=== PATIENT | female | born 1980 | race Caucasian/White ===

== ENCOUNTER 2018-04-16 20:13 | Emergency (ER) | payer BC, SELFPAY ==
[2018-04-16 20:22] VITALS: BP 129/65; PULSE 110; RESP 20; TEMP 37.5; O2SAT 88
--- NOTE | 2018-04-16 20:31 | DI.RAD_ITS ---
SYMPTOM/DIAGNOSIS: SOB, ASTHMA, LT LUNG FIELD WHEEZE PA AND LATERAL CHEST: The heart size is normal. The lungs are clear. No infiltrate, effusion or pneumothorax is seen. IMPRESSION: Negative chest xray. t
--- NOTE | 2018-04-16 20:32 | W.ED.GENAD ---
Discharge Plan Disposition Patient Disposition: HOME Condition: Good Discharge Details Chief Complaint: SOB Clinical Impression: Asthma Primary Care Provider: Patrizia Nelson ED Provider: Matthew Wright Home Meds and New Rx's Prescriptions: New prednisone 50 MG tablet 50 mg PO DAILY Qty: 5 RF: 0 No Action PNV cmb#95-ferrous fumarate-FA [] 1 EACH tablet 1 ea PO DAILY RF: 0 calcium Tablet PO RF: 0 PROVENTIL HFA 18 GM HFA.AER.AD 2 puff Inhalation Q4H PRN Qty: 1 RF: 0 acetaminophen [Tylenol] 325 MG tablet 650 mg PO Q4H PRN PRN (Reason: Headache) RF: 0 acetaminophen [Tylenol] 325 MG tablet 650 mg PO Q4H PRN PRNRF: 0 Discharge Instructions Instructions: Asthma (ED) Additional Instructions: Please take your inhaler every 6 hours. Please take the steroid as directed. If you notice any worsening of your symptoms, or any new symptoms such as vomiting, diarrhea, fever, chills, shortness of breath, chest pain, numbness, weakness, or fainting , please return immediately to the emergency department for reevaluation. Please follow up with your primary care provider as soon as possible for reassessment and reevaluation. As always, it was a pleasure participating in your medical care today. Referrals: Patrizia Nelson MD, [place] [Primary Care Provider] - Medical Decision Making This is a pleasant 38-year-old female with a past medical history of asthma who presents for evaluation of an asthma attack. Patient does not smoke, she has been taking her albuterol inhaler every 2 hours. Physical exam demonstrates notable wheezes throughout and some mild respiratory difficulty. Patient was given a breathing treatment here and she now feels much better. We will continue with 2 additional breathing treatments, and steroids we will get a chest x-ray to rule out pneumonia. Patient's clinical presentation is inconsistent with a PE and clinically consistent with an asthma exacerbation with her notable improvement. She is tachycardic but this is been secondary to the albuterol administration has been provided here. 9:50 PM Patient's chest x-ray is returned negative for any acute process. She has no risk factors for pulmonary embolism. Patient's lung sounds have notably improved, oxygen saturation is excellent on room air. Patient states that she feels much better and would like to go home. Patient is slightly tachycardic after the third DuoNeb, however she feels normal, she states that she has no jitteriness at this time and would like to be discharged. I think this is reasonable. We will encourage continued albuterol at home every 6 hours, as well as steroids. With her notable improvement in her symptoms, and her clinical case clinically consistent with an asthma exacerbation I feel she can be safely discharged home with close follow-up with her PCP. We discussed red flags which return the patient understands. I have extensively reviewed the treatment plan and discharge instructions with the patient. I have addressed all patient concerns at this time. The patient was made aware of what symptoms to monitor for that would warrant a return to the emergency department. Discussed the plan with the patient, they demonstrate verbal understanding and agreement with our assessment and plan at this time. HPI General Date/Time Provider Initiated Documentation: 04/16/18 20:14. HPI Narrative: This is a pleasant 38-year-old female with past medical history of asthma who presents today for evaluation of an asthma attack. Patient does have a an albuterol inhaler at home which she has been taking every 2 hours but notes that it is not been significantly improving her symptoms. Symptoms started earlier today. She has an associated cough. She denies any chest pain, arm pain, neck pain, pleuritic chest pain. She denies any hemoptysis, fever, or chills. She states that her symptoms are clinically consistent with her previous asthma exacerbations. Denies PE risk factors such as recent long car rides, immobilization, recent surgery, prior history of DVT or PE, family history of PE or DVT, morbid obesity, exogenous estrogen and smoking, hemoptysis, history of cancer. Patient has not been on any recent steroids or antibiotics. She has no other additional complaints at this time. No aggravating or modifying factors. She does not smoke. She denies any pertinent family history. Related Data Home Medications Medication Instructions Recorded Confirmed PNV cmb#95-ferrous fumarate-FA 1 ea PO DAILY 03/30/17 10/20/17 [] Calcium PO 04/21/17 acetaminophen [Tylenol] 650 mg PO Q4H PRN PRN 10/20/17 10/20/17 acetaminophen [Tylenol] 650 mg PO Q4H PRN PRN tab 10/22/17 prednisone 50 mg PO DAILY #5 tab 04/16/18 Previous Rx's Medication Instructions Recorded acetaminophen [Tylenol] 650 mg PO Q4H PRN PRN tab 10/22/17 prednisone 50 mg PO DAILY #5 tab 04/16/18 Allergies Allergy/AdvReac Type Severity Reaction Status Date / Time amoxicillin [Amoxicillin] AdvReac Severe violent Unverified 12/01/17 10:12 vomiting General Stated Complaint: SOB CLIF: 3 Review of Systems Review of Systems All systems reviewed & are unremarkable except as noted in HPI and below PFSH Medical History Asthma Eczema Surgical History section section Family History Mother Disorder of thyroid gland Father Essential hypertension Aunt Carcinoma in situ of breast Other Asthma Social History Smoking/Tobacco Use Status: Never Exam Narrative Exam Narrative: 1.Const: Well-nourished, Well-developed, appearing stated age 2.Eyes: PERRL, no conjunctival injection, and symmetrical lids. 3.ENT: Atraumatic external nose and ears. Moist MM. Neck: Symmetric, trachea midline, No thyromegaly. 4.CVS: +S1/S2, No murmurs or gallops. Peripheral pulses 2+ and equal in all extremities. Brisk capillary refill in all extremities. 5.RESP: Notable decrease in breath sounds in the right, minimal wheezes on the left. Post breathing treatment the patient demonstrated no notable wheezes throughout. No significant rhonchi or rales. 6.GI: Soft, Nontender/Nondistended, No hepatosplenomegaly. No guarding or rebound. 7.MSK: Normocephalic/Atraumatic, Extremities w/o deformity or ttp No cyanosis or clubbing, Normal movement of all extremities. No calf tenderness. 8.Skin: Warm, Dry. No rashes or lesions. 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 Sensation grossly intact, no focal neurologic deficits. 10.Psych: (AAO) x3. Appropriate mood and affect Course Vital Signs Temperature 37.5 C 04/16/18 20:22 Pulse 110 H 04/16/18 20:22 Respiratory Rate 20 04/16/18 20:22 Blood Pressure 129/65 04/16/18 20:22 Pulse Oximetry 88 L 04/16/18 20:22 Temperature 37.5 C 04/16/18 20:22 Pulse 110 H 04/16/18 20:22 Respiratory Rate 20 04/16/18 20:22 Blood Pressure 129/65 04/16/18 20:22 Blood Pressure Position Sitting 04/16/18 20:22 Pulse Oximetry 88 L 04/16/18 20:22 Oxygen Delivery Method Room Air 04/16/18 20:22 Oxygen Flow Rate 0 04/16/18 20:22
[2018-04-16 20:39] VITALS: RESP 4
[2018-04-16] MEDS: Albuterol/Ipratropium 3 ML UPD VIAL 6 ML UPD (20:39)
[2018-04-16] MEDS: Albuterol/Ipratropium 3 ML UPD VIAL (20:39)
[2018-04-16] MEDS: methylPREDNISolone SUCC 125 MG VIAL IVP (20:40)
--- NOTE | 2018-04-16 21:31 | DI.VRAD_ITS ---
EXAM: XR Chest, 2 Views EXAM DATE/TIME: 04/16/2018 8:32 PM CLINICAL HISTORY: 38 years old, female; Signs and symptoms; Shortness of breath; Patient HX: SOB, asthma, ll lung field wheeze TECHNIQUE: XR of the chest, 2 views. COMPARISON: No relevant prior studies available. FINDINGS: Lungs: No focal pulmonary opacity. Pleural space: No pneumothorax. No pleural effusion. Heart/Mediastinum: The cardiomediastinal silhouette is within normal limits. The pulmonary vasculature is within normal limits. Bones/joints: The osseous structures are within normal limits. IMPRESSION: No acute cardiopulmonary findings. Dictated and Authenticated by: Gabby Stephens MD. Ordering:NÉSTOR Castro MD
[2018-04-16 21:52] VITALS: BP 124/69; PULSE 127; RESP 18; TEMP 37.4; O2SAT 94
== END 2018-04-16 21:56 | disposition home or self-care (01) ==
PROVIDERS: Emergency Provider Student in an Organized Health Care Education/Training Program; PCP Family Medicine
DX: J45.901 Unspecified asthma with (acute) exacerbation (principal)
CPT/HCPCS: 94640; 96374; 99284; 71046; J2930; J7620

== ENCOUNTER 2018-04-24 01:08 | Outpatient (CLI) | payer BC, SELFPAY ==
--- NOTE | 2018-04-24 11:33 | DI.US_ITS ---
SYMPTOMS/DIAGNOSIS: ENLARGED THYROID, NONTOXIC GOITER, E04.9 THYROID ULTRASOUND: Routine examination was performed. The right lobe is at the upper limits of normal in size measuring 6 cm long x 1.9 cm AP x 2.6 cm transverse. The left lobe measures 5.2 cm craniocaudad x 1.7 cm AP x 2.3 cm transverse. The isthmus measures .4 cm. The parenchyma has a slightly heterogeneous appearance but no discrete mass is appreciated. There is normal and symmetric blood flow to the thyroid gland. IMPRESSION: Upper limits of normal thyroid gland but no discrete mass or abnormal blood flow is seen.
[2018-04-24 13:30] LABS: Anion Gap 9.5 mmol/L (3-11); BUN 16 mg/dL (7-18); CO2 28.5 mmol/L (21.0-32.0); CREATININE 1.18 mg/dL (0.55-1.02); Calcium 8.6 mg/dL (8.5-10.1); Chloride 102 mmol/L (98-107); Cholesterol 128 mg/dL (50-200); Estimated GFR 51.26 (mL/min/1.73m2); Glucose 92 mg/dL (70-100); HDL Cholesterol 56 mg/dL (40-60); LDL CHOLESTEROL 61 mg/dL (<100); Potassium 3.8 mmol/L (3.5-5.1); Sodium 140 mmol/L (136-145); TSH 1.11 uIU/mL (0.358-3.74); Triglyceride 55 mg/dL (30-150)
[2018-04-24 14:05] LABS: FREE T4 1.17 ng/dL (0.76-1.46)
== END 2018-04-24 01:28 ==
PROVIDERS: PCP Nurse Practitioner Family; Visit Provider Nurse Practitioner Family
DX: Z00.00 Encounter for general adult medical examination without abnormal findings (principal); E11.9 Type 2 diabetes mellitus without complications; E04.9 Nontoxic goiter, unspecified
CPT/HCPCS: 36415; 80048; 80061; 83721; 76536; 84439; 84443

== ENCOUNTER 2018-06-11 14:08 | Outpatient (REF) | payer BC, SELFPAY | END 2018-06-11 14:28 | LOC: LBN 14:08 | PROVIDERS: PCP Nurse Practitioner Family; Visit Provider Nurse Practitioner Family | DX: R31.9 Hematuria, unspecified (principal) | CPT/HCPCS: 87086 ==

== ENCOUNTER 2018-06-22 08:45 | Outpatient (CLI) | payer BC, SELFPAY ==
[2018-06-22 10:18] LABS: HCG Quant, Pregnancy 32 mIU/mL (1-3)
== END 2018-06-22 09:05 ==
PROVIDERS: PCP Nurse Practitioner Family; Visit Provider Obstetrics & Gynecology
DX: O20.9 Hemorrhage in early pregnancy, unspecified (principal)
CPT/HCPCS: 36415; 84702

== ENCOUNTER 2018-06-25 13:54 | Outpatient (CLI) | payer BC, SELFPAY ==
[2018-06-25 15:46] LABS: HCG Quant, Pregnancy 35 mIU/mL (1-3)
== END 2018-06-25 14:14 ==
PROVIDERS: PCP Nurse Practitioner Family; Visit Provider Obstetrics & Gynecology
DX: O20.9 Hemorrhage in early pregnancy, unspecified (principal)
CPT/HCPCS: 36415; 84702

== ENCOUNTER 2018-06-29 13:54 | Outpatient (CLI) | payer BC, SELFPAY ==
[2018-06-29 15:48] LABS: HCG Quant, Pregnancy 35 mIU/mL (1-3)
== END 2018-06-29 14:14 ==
PROVIDERS: PCP Nurse Practitioner Family; Visit Provider Obstetrics & Gynecology Gynecology
DX: Z32.01 Encounter for pregnancy test, result positive (principal)
CPT/HCPCS: 84702

== ENCOUNTER 2018-07-11 10:39 | Outpatient (CLI) | payer BC, SELFPAY ==
[2018-07-11 11:24] LABS: HCG Quant, Pregnancy 24 mIU/mL (1-3)
== END 2018-07-11 10:59 ==
PROVIDERS: PCP Nurse Practitioner Family; Visit Provider Obstetrics & Gynecology Gynecology
DX: O03.9 Complete or unspecified spontaneous abortion without complication (principal)
CPT/HCPCS: 36415; 84702

== ENCOUNTER 2018-07-17 09:33 | Outpatient (CLI) | payer BC, SELFPAY ==
[2018-07-17 11:25] LABS: HCG Quant, Pregnancy 204 mIU/mL (1-3)
== END 2018-07-17 09:53 ==
PROVIDERS: PCP Nurse Practitioner Family; Visit Provider Obstetrics & Gynecology Gynecology
DX: O03.9 Complete or unspecified spontaneous abortion without complication (principal)
CPT/HCPCS: 36415; 84702

== ENCOUNTER 2018-08-17 14:30 | Outpatient (CLI) | payer BC, SELFPAY | END 2018-08-17 14:50 | PROVIDERS: PCP Nurse Practitioner Family; Visit Provider Obstetrics & Gynecology Gynecology | DX: Z32.01 Encounter for pregnancy test, result positive (principal) | CPT/HCPCS: 36415; 84702 ==

== ENCOUNTER 2018-09-06 15:52 | Outpatient (CLI) | payer BC, SELFPAY ==
[2018-09-06 16:21] LABS: Abs Immature Grans 0.02 k/cumm (0.0-0.09); Absolute Basophil Count 0.02 k/cumm (0.0-0.2); Absolute Eosinophil Count 0.27 k/cumm (0.0-0.7); Absolute Lymphocyte Count 1.95 k/cumm (1.2-3.4); Absolute Monocyte Count 0.44 k/cumm (0.11-0.7); Absolute Neutrophil Count 5.71 k/cumm (1.2-6.7); Basophils % 0.2; Eosinophils % 3.2; HCT 44.6 % (36.0-46.0); HGB 14.6 g/dL (12.0-15.5); Immature Grans % 0.2; Lymphocytes % 23.2; Mean Corp. HGB Concentration 32.7 g/dL (32.0-36.0); Mean Corpuscular Hemoglobin 29.8 pg (27.0-33.0); Mean Platelet Volume 11.2 fL (8.0-11.0); Monocytes % 5.2; Platelet Count 192 x1000/uL (130-400); RBC Distribution Width 13.1 % (11.7-14.6); White Blood Cell Count 8.41 k/cumm (4.4-10.8)
[2018-09-06 18:18] LABS: *AMPHETAMINES SCREEN URINE Negative (Negative); *BARBITURATES SCREEN URINE Negative (Negative); *BENZODIAZEPINES SCREEN URINE Negative (Negative); Cannabinoids THC Negative (Negative); Cocaine Screen,Urine Negative (Negative); METHADONE URINE SCREEN Negative (Negative); OPIATES URINE SCREEN Negative (Negative)
[2018-09-06 18:25] LABS: Tricyclic Antidepressants Negative (Negative)
[2018-09-09 13:00] LABS: HIV-1/2 Ag & Ab Screen Negative (NEGAT)
[2018-09-10 11:46] LABS: Rubella IgG Ab (UVM) Positive; Syphilis Serology (RPR) Negative (Negative); Varicella IgG Antibody Positive
[2018-09-10 12:00] LABS: Hepatitis B Surface Ag Negative (NEGAT)
[2018-09-10 12:07] LABS: Hepatitis C Ab w Rflx HCV PCR Negative (NEGAT)
[2018-09-10 13:57] LABS: Buprenorphine Negative; Norbuprenorphine Negative
== END 2018-09-06 16:12 ==
PROVIDERS: PCP Nurse Practitioner Family; Visit Provider Advanced Practice Midwife
DX: Z34.91 Encounter for supervision of normal pregnancy, unspecified, first trimester (principal); Z11.4 Encounter for screening for human immunodeficiency virus [HIV]; Z11.59 Encounter for screening for other viral diseases; Z01.84 Encounter for antibody response examination
CPT/HCPCS: 36415; 80055; 80307; 86787; 86803; 86850; 86900; 86901; 87340; 87389; 86592; 86762; 87086

== ENCOUNTER 2018-11-01 00:20 | Outpatient (CLI) | payer BC, SELFPAY ==
--- NOTE | 2018-11-01 13:52 | DI.US_ITS ---
Predicted Gestational Age: Indication/History: , z34.90 18 Wks Range: 17 to 19 Prior US done on: Determined by: First US LMP History EDC by prior US: For multiple gestations: Baby PLACENTA: Grade: i Location: Anterior x Posterior PRESENTATION: RT LT LOW LYING PREVIA Cephalic X Trans (Head RT LT ) Varied Breech BIOMETRY: Anatomy Identified: BPD: 46 mm 19.5 wks 4 chamber Heart X Heart Rate 165 BPM HC: 170 mm 19.4 wks LVOT X Post Fossa X AC: 134 mm 19.6 wks RVOT X Ventricles X FL: 29 mm 18.5 wks Stomach X Nose X Bladder X Lips X Cisterna Magna: 3.4 mm CI: 86 Kidneys X Palate X Cerebellum: 1.86 mm 3 vessel cord X Spine X EFW: 265 grms 93rd % Cord Insertion X NS= not seen Composite Age (US) 19.2 wks Many abnormalities cannot be diagnosed. A normal exam does not exclude congenital abnormality. EDC by US 03/26/19 Amniotic Fluid Index: Normal COMMENTS: RUQ: LUQ: RLQ: LLQ: Total: cm Biophysical Profile: Score 0/2 ROX (>2cm) Respirations (>30 sec) Body flexion/extension Extremity flexion/extension TOTAL SCORE Routine examination was performed. There is a single living intrauterine gestation. Estimated sonographic age is 19 weeks 2 days. No of placental abnormalities are identified. Please refer to the OB ultrasound worksheet for complete details.
== END 2018-11-01 00:40 ==
PROVIDERS: PCP Nurse Practitioner Family; Visit Provider Advanced Practice Midwife
DX: Z34.92 Encounter for supervision of normal pregnancy, unspecified, second trimester (principal)
CPT/HCPCS: 76805

== ENCOUNTER 2018-11-23 13:42 | Outpatient (CLI) | payer BC, SELFPAY ==
[2018-11-23 14:41] LABS: Glucose,1 Hr (Glucola) 117 mg/dL (80-140)
== END 2018-11-23 14:02 ==
PROVIDERS: PCP Nurse Practitioner Family; Visit Provider Advanced Practice Midwife
DX: Z34.92 Encounter for supervision of normal pregnancy, unspecified, second trimester (principal)
CPT/HCPCS: 36415; 82950

== ENCOUNTER 2019-01-10 13:19 | Outpatient (CLI) | payer BC, SELFPAY ==
[2019-01-10 13:43] LABS: HCT 39.8 % (36.0-46.0); HGB 13.2 g/dL (12.0-15.5); Mean Corp. HGB Concentration 33.2 g/dL (32.0-36.0); Mean Corpuscular Hemoglobin 30.1 pg (27.0-33.0); Mean Corpuscular Volume 90.7 fL (80-95); Mean Platelet Volume 10.7 fL (8.0-11.0); Platelet Count 198 x1000/uL (130-400); RBC 4.39 m/cumm (4.00-5.20); RBC Distribution Width 13.4 % (11.7-14.6); White Blood Cell Count 9.21 k/cumm (4.4-10.8)
[2019-01-10 13:50] LABS: Glucose,1 Hr (Glucola) 126 mg/dL (80-140)
--- NOTE | 2019-01-10 14:20 | ANES_ITS ---
Date of service: 01/10/19 Time of Service: 14:20 Anesthesia Note Report Anesthesia Note: I saw Neeru today as she is a G8,P5, currently 28 weeks gestation who wishes to have her 5th TOLAC here at [facility]. This is uncomplicated and her prior 4 TOLAC's have been as well per her report. I see no reason this would not be ok, unless she has a change in her risk stratification. Her IV access and lower back exam are normal and do not seem to present any chal lenges. Her plan is a natural vaginal without an epidural or nitrous adjunct.
== END 2019-01-10 13:39 ==
PROVIDERS: PCP Nurse Practitioner Family; Visit Provider Advanced Practice Midwife
DX: Z34.93 Encounter for supervision of normal pregnancy, unspecified, third trimester (principal)
CPT/HCPCS: 36415; 82950; 85027

== ENCOUNTER 2019-02-28 13:36 | Outpatient (CLI) | payer BC, SELFPAY ==
[2019-02-28 14:26] LABS: HCT 40.3 % (36.0-46.0); Mean Corp. HGB Concentration 32.3 g/dL (32.0-36.0); Mean Corpuscular Hemoglobin 28.9 pg (27.0-33.0); Mean Corpuscular Volume 89.6 fL (80-95); Mean Platelet Volume 11.1 fL (8.0-11.0); Platelet Count 201 x1000/uL (130-400); RBC Distribution Width 13.8 % (11.7-14.6); White Blood Cell Count 10.37 k/cumm (4.4-10.8)
[2019-02-28 14:41] LABS: ALT 13 U/L (14-59); AST 12 U/L (15-37); Albumin 2.4 g/dL (3.4-5.0); Alkaline Phosphatase 102 U/L (46-116); BUN 5 mg/dL (7-18); Bilirubin, Total 0.2 mg/dL (0.2-1.0); CREATININE 0.71 mg/dL (0.55-1.02); Calcium 8.8 mg/dL (8.5-10.1); Chloride 105 mmol/L (98-107); Glucose 116 mg/dL (70-100); Potassium 3.1 mmol/L (3.5-5.1); Sodium 139 mmol/L (136-145); Total Protein 6.2 g/dL (6.4-8.2)
== END 2019-02-28 13:56 ==
PROVIDERS: Advanced Practice Midwife; PCP Nurse Practitioner Family; Visit Provider Advanced Practice Midwife
DX: O14.90 Unspecified pre-eclampsia, unspecified trimester (principal); Z34.90 Encounter for supervision of normal pregnancy, unspecified, unspecified trimester; O13.3 Gestational [pregnancy-induced] hypertension without significant proteinuria, third trimester; Z3A.35 35 weeks gestation of pregnancy
CPT/HCPCS: 36415; 80053; 85027; 59025; 84550

== ENCOUNTER 2019-02-28 14:57 | Outpatient (CLI) | payer BC, SELFPAY ==
[2019-02-28 16:32] LABS: PROTEIN < 6.0 mg/dL
[2019-02-28 16:45] LABS: COMMENT (LAB VIEW ONLY) 23.81 mg/dL
== END 2019-02-28 15:17 ==
PROVIDERS: PCP Nurse Practitioner Family; Visit Provider Advanced Practice Midwife
DX: O14.90 Unspecified pre-eclampsia, unspecified trimester (principal)
CPT/HCPCS: 82565; 84156

== ENCOUNTER 2019-03-07 15:16 | Outpatient (CLI) | payer BC, SELFPAY ==
[2019-03-07 15:41] LABS: HCT 42.5 % (36.0-46.0); HGB 13.8 g/dL (12.0-15.5); Mean Corp. HGB Concentration 32.5 g/dL (32.0-36.0); Mean Corpuscular Hemoglobin 29.1 pg (27.0-33.0); Mean Corpuscular Volume 89.7 fL (80-95); Mean Platelet Volume 11.7 fL (8.0-11.0); Platelet Count 185 x1000/uL (130-400); RBC 4.74 m/cumm (4.00-5.20); White Blood Cell Count 10.55 k/cumm (4.4-10.8)
[2019-03-07 17:24] LABS: ALT 20 U/L (14-59); AST 14 U/L (15-37); Albumin 2.6 g/dL (3.4-5.0); Alkaline Phosphatase 111 U/L (46-116); Anion Gap 8.7 mmol/L (3-11); BUN 3 mg/dL (7-18); Bilirubin, Total 0.1 mg/dL (0.2-1.0); CO2 24.3 mmol/L (21.0-32.0); Calcium 8.6 mg/dL (8.5-10.1); Chloride 106 mmol/L (98-107); Glucose 108 mg/dL (74-106); Potassium 3.6 mmol/L (3.5-5.1); Sodium 139 mmol/L (136-145); Uric Acid 3.3 mg/dL (2.6-6.0)
== END 2019-03-07 15:36 ==
PROVIDERS: PCP Nurse Practitioner Family; Visit Provider Advanced Practice Midwife
DX: O14.90 Unspecified pre-eclampsia, unspecified trimester (principal)
CPT/HCPCS: 36415; 80053; 85027; 84550

== ENCOUNTER 2019-03-07 16:20 | Outpatient (REF) | payer BC, SELFPAY ==
[2019-03-07 18:39] LABS: *AMPHETAMINES SCREEN URINE Negative (Negative); *BARBITURATES SCREEN URINE Negative (Negative); *BENZODIAZEPINES SCREEN URINE Negative (Negative); Cannabinoids THC Negative (Negative); Cocaine Screen,Urine Negative (Negative); METHADONE URINE SCREEN Negative (Negative); OPIATES URINE SCREEN Negative (Negative)
[2019-03-07 18:59] LABS: Tricyclic Antidepressants Negative (Negative)
[2019-03-15 15:36] LABS: Buprenorphine Negative; Norbuprenorphine Negative
== END 2019-03-07 16:40 ==
LOC: LBN 16:20
PROVIDERS: PCP Nurse Practitioner Family; Visit Provider Advanced Practice Midwife
DX: Z34.93 Encounter for supervision of normal pregnancy, unspecified, third trimester (principal); Z36.85 Encounter for antenatal screening for Streptococcus B
CPT/HCPCS: 80307; 87081

== ENCOUNTER 2019-03-09 11:13 | Outpatient (REF) | payer BC, SELFPAY ==
[2019-03-09 15:14] LABS: PROTEIN < 6.0 mg/dL (0.0-11.9); Total Volume 4300 ml
== END 2019-03-09 11:33 ==
LOC: LBN 11:13
PROVIDERS: PCP Nurse Practitioner Family; Visit Provider Advanced Practice Midwife
DX: O13.9 Gestational [pregnancy-induced] hypertension without significant proteinuria, unspecified trimester (principal)
CPT/HCPCS: 84155

== ENCOUNTER 2019-03-13 10:10 | Observation (INO) | payer BC, SELFPAY | END 2019-03-13 11:00 | disposition home or self-care (01) | LOC: OBS 11:26 | PROVIDERS: Admitting Provider Advanced Practice Midwife; PCP Nurse Practitioner Family; Visit Provider Advanced Practice Midwife | DX: Z03.71 Encounter for suspected problem with amniotic cavity and membrane ruled out (principal); O13.3 Gestational [pregnancy-induced] hypertension without significant proteinuria, third trimester; Z3A.36 36 weeks gestation of pregnancy | CPT/HCPCS: 59025; G0378 ==

== ENCOUNTER 2019-03-16 09:01 | Outpatient (CLI) | payer BC, SELFPAY ==
[2019-03-16 11:08] LABS: HCT 40.7 % (36.0-46.0); HGB 13.1 g/dL (12.0-15.5); Mean Corp. HGB Concentration 32.2 g/dL (32.0-36.0); Mean Platelet Volume 11.7 fL (8.0-11.0); Platelet Count 183 x1000/uL (130-400); RBC 4.52 m/cumm (4.00-5.20); RBC Distribution Width 14.2 % (11.7-14.6); White Blood Cell Count 9.37 k/cumm (4.4-10.8)
[2019-03-16 11:34] LABS: COMMENT (LAB VIEW ONLY) 18.93 mg/dL; PROTEIN < 6.0 mg/dL
[2019-03-16 11:37] LABS: ALT 13 U/L (14-59); AST 15 U/L (15-37); Albumin 2.3 g/dL (3.4-5.0); Alkaline Phosphatase 110 U/L (46-116); Anion Gap 10.2 mmol/L (3-11); BUN 6 mg/dL (7-18); Bilirubin, Total 0.2 mg/dL (0.2-1.0); CO2 22.8 mmol/L (21.0-32.0); CREATININE 0.82 mg/dL (0.55-1.02); Calcium 8.6 mg/dL (8.5-10.1); Chloride 105 mmol/L (98-107); Glucose 112 mg/dL (74-106); Potassium 3.5 mmol/L (3.5-5.1); Sodium 138 mmol/L (136-145); Total Protein 6.2 g/dL (6.4-8.2)
== END 2019-03-16 09:21 ==
PROVIDERS: PCP Nurse Practitioner Family; Visit Provider Advanced Practice Midwife
DX: O26.893 Other specified pregnancy related conditions, third trimester (principal); R03.0 Elevated blood-pressure reading, without diagnosis of hypertension; Z3A.37 37 weeks gestation of pregnancy
CPT/HCPCS: 36415; 80053; 85027; 59025; 82565; 84156; 84550

== ENCOUNTER 2019-03-20 03:49 | Inpatient (IN) | payer BC, SELFPAY ==
[2019-03-20 06:47] LABS: HCT 41.1 % (36.0-46.0); HGB 13.5 g/dL (12.0-15.5); Mean Corp. HGB Concentration 32.8 g/dL (32.0-36.0); Mean Corpuscular Hemoglobin 29.5 pg (27.0-33.0); Mean Corpuscular Volume 89.9 fL (80-95); Mean Platelet Volume 11.7 fL (8.0-11.0); Platelet Count 171 x1000/uL (130-400); RBC 4.57 m/cumm (4.00-5.20); RBC Distribution Width 14.6 % (11.7-14.6); White Blood Cell Count 10.09 k/cumm (4.4-10.8)
[2019-03-20] MEDS: Ibuprofen 600 MG TAB (21:55)
[2019-03-21] MEDS: Acetaminophen 325 MG TAB 650 MG PO ×3 (01:25→15:16)
[2019-03-21] MEDS: Ibuprofen 600 MG TAB PO ×4 (03:50→22:10)
[2019-03-21 07:07] LABS: HGB 12.5 g/dL (12.0-15.5); Mean Corp. HGB Concentration 32.1 g/dL (32.0-36.0); Mean Corpuscular Volume 90.5 fL (80-95); Platelet Count 188 x1000/uL (130-400); RBC 4.31 m/cumm (4.00-5.20); RBC Distribution Width 14.6 % (11.7-14.6); White Blood Cell Count 12.61 k/cumm (4.4-10.8)
[2019-03-22] MEDS: Ibuprofen 600 MG TAB PO ×2 (04:16→11:06)
== END 2019-03-22 15:05 | disposition home or self-care (01) | DRG 807 ==
PROVIDERS: Advanced Practice Midwife; Admitting Provider Advanced Practice Midwife; PCP Nurse Practitioner Family; Visit Provider Advanced Practice Midwife
DX: O34.211 Maternal care for low transverse scar from previous cesarean delivery (principal); Z37.0 Single live birth; O42.02 Full-term premature rupture of membranes, onset of labor within 24 hours of rupture; Z3A.37 37 weeks gestation of pregnancy; O70.0 First degree perineal laceration during delivery; O99.214 Obesity complicating childbirth; E66.9 Obesity, unspecified; O99.344 Other mental disorders complicating childbirth; F32.9 Major depressive disorder, single episode, unspecified; O90.89 Other complications of the puerperium, not elsewhere classified; M54.9 Dorsalgia, unspecified; M25.551 Pain in right hip; M25.552 Pain in left hip
CPT/HCPCS: 36415; 85027; 86850; 86900; 86901

== ENCOUNTER 2019-05-07 14:03 | Outpatient (CLI) | payer BC, SELFPAY ==
[2019-05-07 15:57] LABS: HCT 42.1 % (36.0-46.0); HGB 13.5 g/dL (12.0-15.5); Mean Corp. HGB Concentration 32.1 g/dL (32.0-36.0); Mean Corpuscular Hemoglobin 28.8 pg (27.0-33.0); Mean Platelet Volume 10.8 fL (8.0-11.0); Platelet Count 237 x1000/uL (130-400); RBC 4.68 m/cumm (4.00-5.20); White Blood Cell Count 6.11 k/cumm (4.4-10.8)
[2019-05-07 16:29] LABS: BUN 14 mg/dL (7-18); Calcium 8.6 mg/dL (8.5-10.1); Chloride 106 mmol/L (98-107); Glucose 95 mg/dL (74-106); Potassium 3.8 mmol/L (3.5-5.1); Sodium 144 mmol/L (136-145)
== END 2019-05-07 14:23 ==
PROVIDERS: PCP Nurse Practitioner Family; Visit Provider Obstetrics & Gynecology Gynecology
DX: Z30.2 Encounter for sterilization (principal); Z01.818 Encounter for other preprocedural examination; Z01.812 Encounter for preprocedural laboratory examination
CPT/HCPCS: 36415; 80048; 85027; 86850; 86900; 86901

== ENCOUNTER 2019-05-09 06:59 | Day surgery (SDC) | payer BC, SELFPAY ==
[2019-05-07 14:09] VITALS: BP 114/86; PULSE 84
[2019-05-09] VITALS (9 sets, daily range): BP systolic 86–131; BP diastolic 36–68; PULSE 57–75; RESP 12–17; TEMP 35.9–36.4; O2SAT 95–98
[2019-05-09] MEDS: Lactated Ringers 1,000 ML 125 ML IV ×2 (08:15→11:43)
[2019-05-09] MEDS: Bupivacaine 0.25% Pres-Free 30 ML VIAL (09:51)
--- NOTE | 2019-05-09 10:05 | FALL_PTH ---
PATIENT: Neeru Dillard LOC: [facility] U#:[id number] AGE/SX: 39/F ROOM: RE05/09/[address]: Fifi Damian : 1980 BED: DIS: 05/09/2019 SPEC #: [id number] RECD: 05/09/19 12:29 STATUS: ALEX REMichaela #: [id number] KAE: 05/09/19 10:[address]: Fifi Damian DEPT: Surgical Specimen RECD BY: Jud Truong ENTERED: 05/09/19 12:30 SP TYPE: Fall OTHR DR: Nava Nagel, PAOLA Tissues: 1 - FALLOPIAN TUBE (STERILIZATION) Procedures: GROSS AND MICRO LEVEL 2 Comments: [id number] (ONE CONTAINER PER PHYSICIAN PREFERENCE)
--- NOTE | 2019-05-09 10:42 | W.PM.DSUDISC ---
Discharge Plan Disposition Patient Disposition: HOME Condition: Good Discharge Details Attending Provider: Fifi Damian Primary Care Provider: Nava Nagel Home Meds and New Rx's Prescriptions: No Action Caltrate 600-D Plus Minerals 600 mg calcium- 800 unit-50 mg tablet 1 tab PO DAILY RF: 0 albuterol sulfate 90 mcg/actuation HFA aerosol inhaler 1 puff IH Q6H PRN (Reason: shortness of breath or wheezing) Qty: 8.5 RF: 4 fluticasone propionate 110 mcg/actuation HFA aerosol inhaler 2 puff IH DAILY Qty: 12 RF: 4 PNV cmb#95-ferrous fumarate-FA [] 1 EACH tablet 1 ea PO DAILY RF: 0 oxycodone-acetaminophen 5-325 mg tablet 1 tab PO Q6H MDD 4 PRN (Reason: pain) Qty: 6 RF: 0 Discharge Instructions Additional Instructions: You will be given a prescription for Percocet 5/325 1 to 2 tablets every 6 hours as needed for pain. Take that along with ibuprofen 600 mg every 6 hours as needed for pain. Follow-up with Dr. Damian in approximately 1 week or as needed. Stand Alone Forms: DSU Post Gynecology Surgery Activity:: Activity as Tolerated Diet:: As Tolerated Discharge Orders Discharge Orders: Discharge Order (Routine); Ordered 05/09/19 Ordered By: Fifi Damian DS: Diagnosis Discharge Diagnosis (1) History of sterilization procedure: Status: Acute
--- NOTE | 2019-05-09 20:12 | W.PM.OP ---
Date of service: 05/09/19 Time of Service: 20:12 Operative Note Operative Note DATE OF PROCEDURE: 05/09/19 PRE-OP DIAGNOSIS: Multiparity desiring permanent sterilization POST-OP DIAGNOSIS: same PROCEDURE: Laparoscopic bilateral salpingectomy SURGEON: Fifi Damian EDITOR DICTIONARY: Ana Mcgarry ANESTHESIA: GETA ESTIMATED BLOOD LOSS: 0 PATHOLOGY: other (Both fallopian tubes to pathology.) COMPLICATIONS: None Patient was transported to: PACU Patient's condition: stable Indications: 39-year-old gravid female who desires permanent sterilization. She had been counseled regarding LARC and alternatives to surgery. She was sure that her family was complete and decided on permanent sterilization. Findings: Normal pelvis normal adnexa appendix normal upper abdomen normal Procedure Description: Patient was taken the operating room she is placed in the dorsal supine position and general endotracheal anesthesia was administered without difficulty. SCDs were in place. No antibiotics were administered. She was prepped and draped in the usual sterile fashion. Surgical timeout was performed. Attention was turned to the patient's abdomen where the base of the umbilicus was infiltrated with quarter percent Marcaine without epinephrine and a scalpel was used to make a 12 mm vertical skin incision. Patient's abdomen was tented up and a varies needle attached to carbon dioxide was then inserted through the incision into the abdomen with proper placement confirmed by a drop in the intra-abdominal pressure. Once a pneumoperitoneum had been established a 12 mm op scope was placed through the umbilical incision under direct visualization intra-abdominal placement confirmed. Patient was placed in Trendelenburg Laparoscope was then used to transilluminate subcutaneous tissue and sites of 2 5 mm trochars were marked infiltrated with quarter percent Marcaine and and skin incised and the 5 mm trocar and sleeve placed under direct visualization. The right fallopian tube was followed out to its fimbriated end tented up and using a LigaSure electrocautery device the mesosalpinx was sequentially clamped cauterized and cut to the level of the uterine cornua where fallopian tube was amputated from the uterine cornua and placed in the anterior cul-de-sac. A similar technique was carried on the contralateral fallopian tube. A 10 mm Endo Catch bag was then placed through the umbilical port and both specimens placed in the bag and delivered through the umbilical incision. Laparoscope was then used to inspect the pedicle sites which were noted be hemostatic. Under direct visualization both 5 mm trochars removed pneumoperitoneum knee reduced and the umbilical port was removed. Rectus fascia was reapproximated with 2 sutures of 0 Vicryl. The skin all port sites was reapproximated with subcuticular suture of 4-0 Monocryl. Patient was awakened from anesthesia extubated and transported recovery area in stable condition. All sponge lap needle counts correct x2
== END 2019-05-09 13:40 | disposition home or self-care (01) ==
PROVIDERS: PCP Nurse Practitioner Family; Visit Provider Obstetrics & Gynecology Gynecology
PROC: (CPT 58661; principal; 2019-05-09 08:30)
DX: Z30.2 Encounter for sterilization (principal)
CPT/HCPCS: 58661; 81025; 88302; J1100; J1885; J2001; J2250; J2405; J2704

== ENCOUNTER 2019-12-25 01:03 | Outpatient (CLI) | payer BC, SELFPAY ==
--- NOTE | 2019-12-25 09:15 | DI.US_ITS ---
EXAM: US BREAST RT COMPLETE CLINICAL HISTORY: right breast pain, , N64.4, MASTALGIA TECHNIQUE: Ultrasound right breast performed using standard protocol. COMPARISON: No exams were available for comparison FINDINGS: No solid or cystic masses, hypoechoic foci, areas of abnormal shadowing, or areas of skin thickening. There are mildly dilated ducts in the subareolar region, normal for a breast feeding patient. IMPRESSION: No sonographically suspicious finding. BI-RADS Cat 1 - Negative A negative ultrasound should not preclude further investigation of a clinically suspicious palpable a bnormality. DATA REPOSITORY:
== END 2019-12-25 01:23 ==
PROVIDERS: PCP Nurse Practitioner Family; Visit Provider Advanced Practice Midwife
DX: N64.4 Mastodynia (principal)
CPT/HCPCS: 76642

== ENCOUNTER 2020-06-05 00:45 | Outpatient (CLI) | payer BC, SELFPAY ==
--- NOTE | 2020-06-05 15:25 | DI.MAMMO_ITS ---
EXAM: MAMMO SCREENING CLINICAL HISTORY: screening,Z12.39 TECHNIQUE: Mammograms were interpreted according to the usual protocol including computer analysis w [employer] CAD system, tomosynthesis and C-view imaging. COMPARISON: No exams were available for comparison. Baseline examination. FINDINGS: The breasts are composed of scattered fibroglandular densities, Breast Density category B. No suspicious masses or suspicious microcalcifications are seen. No skin thickening or abnormal axillary lymph nodes are seen. There has been no significant change from prior exams. IMPRESSION: BI-RADS Category 1, Negative mammogram Yearly screening mammography is recommended. Breast Density - Category B, scattered fibroglandular densities. A negative radiographic report should not delay biopsy if a dominant or clinically suspicious mass is present. Up to ten percent of cancers are not identified on mammography. A negative report may reinforce clinical impression. Adenosis and dense breasts may obscure an underlying neoplasm. False positive reports average 6 to 10%. Patient will receive a letter notifying them of these results.
== END 2020-06-05 00:46 ==
LOC: DI 00:46
PROVIDERS: PCP Nurse Practitioner Family; Visit Provider Nurse Practitioner Family
DX: Z12.31 Encounter for screening mammogram for malignant neoplasm of breast (principal)
CPT/HCPCS: 77063; 77067

== ENCOUNTER 2020-06-05 02:38 | Outpatient (CLI) | payer BC, SELFPAY ==
[2020-06-05 16:12] LABS: Hemoglobin A1C 5.6 % (<5.7)
[2020-06-05 16:48] LABS: BUN 14 mg/dL (7-18); CREATININE 1.1 mg/dL (0.55-1.02); Calcium 9.3 mg/dL (8.5-10.1); Calculated LDL 82 mg/dL (<100); Chloride 103 mmol/L (98-107); Cholesterol 140 mg/dL (<200); Estimated GFR 55.01 (mL/min/1.73m2); Glucose 101 mg/dL (74-106); HDL Cholesterol 46 mg/dL (40-60); Potassium 4.1 mmol/L (3.5-5.1); Sodium 142 mmol/L (136-145); Triglyceride 62 mg/dL (<150)
== END 2020-06-05 02:39 | disposition home or self-care (01) ==
LOC: LBO 02:38
PROVIDERS: PCP Nurse Practitioner Family; Visit Provider Nurse Practitioner Family
DX: E66.9 Obesity, unspecified (principal)
CPT/HCPCS: 36415; 80048; 80061; 83036

== ENCOUNTER 2020-08-31 03:45 | Outpatient (CLI) | payer BC, SELFPAY ==
--- NOTE | 2020-08-31 15:00 | NS.NUTBLAN_ITS ---
Neeru was referred to Medical Nutrition Therapy for weight management. 5'5 215 lbs BMI 35. Does not consume gluten, egg products, dairy. Cooks most of her own family meals. 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 Reports lowest weight post baby was 155 lbs after fourth child. Has been unable to lose weight since then. No longer breast feeding 6th child and ready to lose her baby weight. Reports hyper thyroidism, family hx of Aries Carney. Current meal plan consists of erratic meals, low in protein and high in carbohydrates. Suspect some form of insulin resistance limiting ability to lose weight. Neeru has tried intermittent fasting, keto diet without significant weight loss. Educated Neeru on how to follow [id number] kcal, 90-100 g carbohydrate, 60-70 g protien, 40-50 g fat meals with 3 meals, 2 snacks daily. Encouraged 1-2 mile walk daily. Encouraged time for relaxation. Suspect high levels of cortisol and counter gluco regulatory hormones that may be limiting her ability to lose weight. Following a lower carb, well balanced diet coupled with daily exercise may make weight loss attainable. Goal weight loss 4-5 lbs per month. Goal weight : 150-160 lbs. no follow up planned at this time.
== END 2020-08-31 03:46 | disposition home or self-care (01) ==
LOC: DS 03:45
PROVIDERS: PCP Nurse Practitioner Family; Visit Provider Dietitian, Registered
DX: E66.8 Other obesity (principal); Z71.3 Dietary counseling and surveillance
CPT/HCPCS: 97802

== ENCOUNTER 2020-11-16 02:46 | Outpatient (CLI) | payer BC, SELFPAY ==
[2020-11-16 08:39] LABS: HCT 48.3 % (36.0-46.0); HGB 15.1 g/dL (11.2-15.7); MCHC 31.3 % (32.0-36.0); MCV 89.4 fL (80-95); MPV 11.4 fL (8.0-11.0); Platelet Count 213 10^3/uL (130-400); RDW 12.5 % (11.7-14.6); RDW-SD 41.1 fL; WBC 5.97 10^3/uL (4.4-10.8)
[2020-11-16 09:29] LABS: Anion Gap 12.1 mmol/L (3-11); BUN 8 mg/dL (7-18); CO2 26.9 mmol/L (21.0-32.0); CREATININE 1.1 mg/dL (0.55-1.02); Calcium 8.5 mg/dL (8.5-10.1); Chloride 105 mmol/L (98-107); Estimated GFR 55.01 (mL/min/1.73m2); Glucose 108 mg/dL (74-106); Potassium 4.3 mmol/L (3.5-5.1); Sodium 144 mmol/L (136-145)
[2020-11-16 09:33] LABS: Iron 80 ug/dL (50-170); Total Iron Binding Capacity 347 ug/dL (250-450); Transferrin Sat 23 % (15-50)
[2020-11-16 09:41] LABS: FREE T4 0.91 ng/dL (0.76-1.46); TSH 1.93 uIU/mL (0.36-3.74)
[2020-11-16 09:53] LABS: Triglyceride 93 mg/dL (<150)
[2020-11-16 11:03] LABS: GTT Comment See Comments
[2020-11-16 16:28] LABS: T3,Free 3.9 pg/mL (2.8-5.3)
[2020-11-16 16:59] LABS: Thyroperoxidase Antibody <28 U/mL (<=60)
[2020-11-19 10:03] LABS: Insulin 27.4 uIU/mL (<29.0)
[2020-11-19 10:12] LABS: Insulin 13.4 uIU/mL (<29.0)
== END 2020-11-16 02:47 | disposition home or self-care (01) ==
PROVIDERS: PCP Nurse Practitioner Family; Visit Provider Naturopath
DX: R79.89 Other specified abnormal findings of blood chemistry (principal); R53.83 Other fatigue; N92.0 Excessive and frequent menstruation with regular cycle; E66.9 Obesity, unspecified
CPT/HCPCS: 36415; 80048; 85027; 82951; 83525; 83540; 83550; 84439; 84443; 84478; 84481; 86376

== ENCOUNTER 2020-11-23 12:58 | Outpatient (REF) | payer BC, SELFPAY ==
[2020-11-23 19:36] LABS: Bilirubin Negative (Negative); Blood Negative (Negative); Clarity Clear (Clear); Glucose Negative (Negative); Ketones Negative (Negative); Leukocyte Esterase Negative (Negative); Nitrite Negative (Negative); Urobilinogen 0.2 EU/dL (Up TO 0.2)
== END 2020-11-23 12:59 | disposition home or self-care (01) ==
LOC: LBN 12:58
PROVIDERS: PCP Nurse Practitioner Family; Visit Provider Nurse Practitioner Family
DX: N28.9 Disorder of kidney and ureter, unspecified (principal)
CPT/HCPCS: 81003

== ENCOUNTER 2021-06-10 00:52 | Outpatient (CLI) | payer BC, SELFPAY ==
--- NOTE | 2021-06-10 07:00 | DI.MAMMO_ITS ---
Exam(s) MAMMO SCREENING EXAM: MAMMO SCREENING CLINICAL HISTORY: screening,Z12.39. TECHNIQUE: Bilateral full field digital CC and MLO mammographic images were obtained with 3D tomosyn thesis and utilizing computer aided detection (CAD). COMPARISON: Prior mammograms were reviewed, the most recent being May 2020. FINDINGS: There are no new spiculated masses nor malignant appearing microcalcification groups. There is no significant architectural distortion nor skin thickening-retraction. IMPRESSION: No radiographic evidence of malignancy. BI-RADS Category 1 - Negative Breast Density - Category B - Scattered areas of fibroglandular density Breast density Category C or D implies that the patient has dense breast tissue. Dense breast tissue can make it harder to find cancer on a mammogram. Dense breast tissue is also associated with an incr eased risk of breast cancer. This information about the result of the mammogram report was provided to the patient to raise their awareness. Use this report when you speak with the patient about their risks for breast cancer, which includes their family history. At that time, you may recommend additional screening tests (Ultrasoun d or MRI) as these tests may add significant information. A negative radiographic report should not delay biopsy if a dominant or clinically suspicious mass is present. Up to ten percent of cancers are not identified on mammography. A negative report may reinforce clinical impression. Adenosis and dense breasts may obscure an underlying neoplasm. False positive reports average 6 to 10%. Patient will receive a letter notifying them of these results.
== END 2021-06-10 01:12 ==
PROVIDERS: PCP Nurse Practitioner Family; Visit Provider Nurse Practitioner Family
DX: Z12.31 Encounter for screening mammogram for malignant neoplasm of breast (principal)
CPT/HCPCS: 77063; 77067

== ENCOUNTER 2021-06-10 12:40 | Outpatient (REF) | payer BC, SELFPAY ==
--- NOTE | 2021-06-10 11:30 | PAPFT_PTH ---
PATIENT: Neeru Dillard LOC: [facility] U#:[id number] AGE/SX: 41/F ROOM: RE06/10/[address]: Althea Buck CNM : 1980 BED: DIS: 06/10/2021 SPEC #: [id number] RECD: 06/10/21 18:24 STATUS: DESTINYKit REMichaela #: [id number] KAE: 06/10/21 11:[address]: Althea Buck DEPT: [facility] Cytology RECD BY: Jud Truong ENTERED: 06/10/21 18:25 SP TYPE: PAPFT OTHR DR: Nava Nagel, RADIOLOGY RECEPTIONIST Tissues: 1 - CX/ENDOCX FOR PAP SMEARS Procedures: PAP THIN PREP/UVM Screening HPV DNA PROBE Comments: [id number]
== END 2021-06-10 12:41 | disposition home or self-care (01) ==
LOC: LBN 12:40
PROVIDERS: PCP Nurse Practitioner Family; Visit Provider Advanced Practice Midwife
DX: Z12.4 Encounter for screening for malignant neoplasm of cervix (principal); Z11.51 Encounter for screening for human papillomavirus (HPV); R87.610 Atypical squamous cells of undetermined significance on cytologic smear of cervix (ASC-US)
CPT/HCPCS: 88142; 87624

== ENCOUNTER 2022-06-08 01:10 | Outpatient (CLI) | payer MEDICAID, SELFPAY ==
--- NOTE | 2022-06-08 07:45 | DI.US_ITS ---
Exam(s) US PELVIS TRANSVAGINAL EXAM: US PELVIS TRANSVAGINAL CLINICAL HISTORY: ABNL heavy menstrual bleeding x 3yrs,? fibroid,? CYST,N93.9. TECHNIQUE: Transabdominal and transvaginal pelvic ultrasound was performed using standard protocol. COMPARISON: US US OB 2-3 trimester from 11/01/2018 FINDINGS: UTERUS: Position: Anteverted. Size: 9.2 long by 4.4 AP by 6.2 transverse cm Endometrium: 0.7 cm. Normal for patient's menstrual status. Myometrium: Unremarkable. Cervix: Unremarkable. OVARIES: Right: 2.2 x 2.7 x 2.1 cm Cyst or mass: No suspicious cystic or solid masses. Left: 1.6 x 1.4 x 2.4 cm Cyst or mass: No suspicious cystic or solid masses. DOPPLER: Color: Symmetric and uniform flow to both ovaries. CUL-DE-SAC: Free fluid: None. Other: None. IMPRESSION: 1. Normal-appearing uterus with endometrial stripe within normal limits. 2. Unremarkable bilateral ovaries. DATA REPOSITORY:
== END 2022-06-08 01:30 ==
LOC: DI 01:10
PROVIDERS: PCP Nurse Practitioner Family; Visit Provider Nurse Practitioner Family
DX: N93.8 Other specified abnormal uterine and vaginal bleeding (principal)
CPT/HCPCS: 76830; 76856

== ENCOUNTER 2022-06-09 03:04 | Outpatient (CLI) | payer MEDICAID, SELFPAY ==
[2022-06-09] MEDS: Albuterol HFA 18 GM 200 PUFF INH IH (14:14)
[2022-06-09] MEDS: Inhaler, Assist Device 1 EACH MC (14:16)
--- NOTE | 2022-06-13 15:21 | W.PFT ---
Date of service: 06/09/22 Time of Service: 12:59 Pulmonary Function Test Result Requesting Provider Nava Nagel Indications: Asthma Interpretation Spirometry: There is no airflow limitation. There is no significant bronchodilator response (but over 200cc improvement in FEV1). Lung Volumes: Normal lung volumes. Diffusion Capacity: Normal diffusion. Airway Pressure: Increased airways resistance. Impression There is increased airways resistance, which can be seen in asthma or chronic bronchitis (COPD). Clinical Correlation therefore is recommended.
== END 2022-06-09 03:05 | disposition home or self-care (01) ==
PROVIDERS: PCP Nurse Practitioner Family; Visit Provider Nurse Practitioner Family
DX: J45.909 Unspecified asthma, uncomplicated (principal)
CPT/HCPCS: 94060; 94726; 94729

== ENCOUNTER 2022-06-20 00:58 | Outpatient (CLI) | payer MEDICAID, SELFPAY ==
--- NOTE | 2022-06-20 08:00 | DI.MAMMO_ITS ---
Exam(s) MAMMO SCREENING EXAM: MAMMO SCREENING CLINICAL HISTORY: screening,Z12.39 TECHNIQUE: Mammograms were interpreted according to the usual protocol including computer analysis w [employer] CAD system, tomosynthesis and C-view imaging. COMPARISON: 2020 and 2021 FINDINGS: The breasts are composed of scattered fibroglandular densities, Breast Density category B. No suspicious masses or suspicious microcalcifications are seen. No skin thickening or abnormal axillary lymph nodes are seen. There has been no significant change from prior exams. IMPRESSION: BI-RADS Category 1, Negative mammogram Yearly screening mammography is recommended. Breast Density - Category B, scattered fibroglandular densities. A negative radiographic report should not delay biopsy if a dominant or clinically suspicious mass is present. Up to ten percent of cancers are not identified on mammography. A negative report may reinforce clinical impression. Adenosis and dense breasts may obscure an underlying neoplasm. False positive reports average 6 to 10%. Patient will receive a letter notifying them of these results.
== END 2022-06-20 01:18 ==
PROVIDERS: PCP Nurse Practitioner Family; Visit Provider Nurse Practitioner Family
DX: Z12.31 Encounter for screening mammogram for malignant neoplasm of breast (principal)
CPT/HCPCS: 77063; 77067